=== PATIENT | female | born 1985 | race Caucasian/White ===

== ENCOUNTER 2016-07-15 22:27 | Outpatient (CLI) | payer OTHER ==
[2016-07-15 22:52] VITALS: BP 114/74
[2016-07-16 00:36] LABS: ADD MIUA? YES; BILIRUBIN NEGATIVE; BLOOD NEGATIVE; COLOR YELLOW ((YELLOW)); GLUCOSE (STRIP) NEGATIVE; KETONES NEGATIVE; LEUKOCYTES SMALL; NITRITE NEGATIVE; PROTEIN (STRIP) NEGATIVE; UROBILINOGEN 0.2 MG/DL (0.2-1.0)
[2016-07-16 00:40] LABS: BACTERIA NONE SEEN /HPF; EPITHELIAL CELLS RARE /HPF; MUCUS TRACE /LPF; RED BLOOD CELLS 0-5 /HPF (0-5); UCUL ADDED? NO; WHITE BLOOD CELLS 0-5 /HPF (0-5)
[2016-07-16 00:51] VITALS: BP 116/68
[2016-07-16 05:14] LABS: AMPHETAMINES QUANT VALUE 0 NG/ML; BARBITUATES QUANT VALUE 0 NG/ML; BENZODIAZEPINES QUANT VALUE 0 NG/ML; BENZODIAZEPINES, URINE SCREEN Negative (200 ng/mL); MARIJUANA QUANT VALUE 0 NG/ML; OPIATES QUANTITATIVE VALUE 0 NG/ML; PHENCYCLIDINE QUANT VALUE 0 NG/ML
[2016-07-17 11:37] LABS: CHLAMYDIA TRACHOMATIS NEGATIVE; NEISSERIA GONORRHOEAE NEGATIVE
== END 2016-07-16 01:40 | disposition home or self-care (01) ==
LOC: LDRP-OP 22:27 → 2WEST 22:28
PROVIDERS: Nurse Practitioner
DX: O60.03 Preterm labor without delivery, third trimester (principal); Z3A.33 33 weeks gestation of pregnancy
CPT/HCPCS: 59025; 80306 90; 81003; 82731; 87491; 87591; G0378

== ENCOUNTER 2016-07-27 11:57 | Outpatient (CLI) | payer OTHER ==
[2016-07-27 12:24] VITALS: BP 126/76
[2016-07-27] MEDS ORDERED: PRENATAL TABLE1 EAC3 PO (12:43)
== END 2016-07-27 13:27 | disposition home or self-care (01) ==
LOC: LDRP-OP 11:57 → 2WEST 11:58 → LDRP-OP 09-30 01:48
DX: O26.893 Other specified pregnancy related conditions, third trimester (principal); Z3A.35 35 weeks gestation of pregnancy
CPT/HCPCS: 59025; G0378

== ENCOUNTER 2016-08-03 10:08 | Outpatient (CLI) | payer OTHER ==
[~2016-08-03 10:08] MED LIST: PRENATAL TABLE1 EAC3 PO
[2016-08-03 10:15] VITALS: BP 126/78
== END 2016-08-03 11:08 | disposition home or self-care (01) ==
LOC: LDRP-OP 10:08 → 2WEST 10:09 → LDRP-OP 09-30 13:54
DX: O47.03 False labor before 37 completed weeks of gestation, third trimester (principal); O99.343 Other mental disorders complicating pregnancy, third trimester; O16.3 Unspecified maternal hypertension, third trimester; F32.9 Major depressive disorder, single episode, unspecified; Z3A.36 36 weeks gestation of pregnancy
CPT/HCPCS: 59025; G0378

== ENCOUNTER 2017-04-01 19:35 | Emergency (ER) | payer OTHER ==
[~2017-04-01] VITALS: Ht 160 cm; Wt 82.9 kg
[2017-04-01 19:44] VITALS: BP 137/85
== END 2017-04-01 20:49 | disposition home or self-care (01) ==
LOC: EME 19:35
PROC: 2W39X1Z Immobilization of Left Upper Extremity using Splint (ICD-10-PCS; principal; 2017-04-01)
DX: S62.002A Unspecified fracture of navicular [scaphoid] bone of left wrist, initial encounter for closed fracture (principal); W10.9XXA Fall (on) (from) unspecified stairs and steps, initial encounter; Z88.5 Allergy status to narcotic agent; Z88.6 Allergy status to analgesic agent
CPT/HCPCS: 73110; 99281; 99283